=== PATIENT | female | born 1980 | race Caucasian/White ===

== ENCOUNTER 2017-07-01 11:18 | Emergency (ER) | payer OTHER ==
[~2017-07-01] VITALS: Ht 152.4 cm; Wt 90.7 kg
[2017-07-01 11:34] VITALS: Ht 152.4 cm; Wt 90.7 kg
[2017-07-01 14:54] VITALS: BP 119/77
== END 2017-07-01 14:54 | disposition home or self-care (01) ==
LOC: ED 11:18
DX: S91.322A Laceration with foreign body, left foot, initial encounter (principal); W25.XXXA Contact with sharp glass, initial encounter; Y93.89 Activity, other specified; Y92.89 Other specified places as the place of occurrence of the external cause; Y99.8 Other external cause status
CPT/HCPCS: 90715; J0690; J2001